=== PATIENT | male | born 1965 | race Caucasian/White ===

== ENCOUNTER 2019-11-20 19:26 | Emergency (ER) | payer OTHER ==
[2019-11-20] MEDS ORDERED: NALOXONE HCL 0.4 MG/ML VIAL IVPUSH ONE ×2 (19:44→21:28)
[2019-11-20 19:47] VITALS: TEMP 97.9; BMI 17.8
[2019-11-20] MEDS ORDERED: NALOXONE HCL 0.4 MG/ML VIAL ONE (20:11)
--- NOTE | 2019-11-20 20:18 | PDOC ---
History of Present Illness - General Chief Complaint: Weakness Stated Complaint: Weakness Time Seen by Provider: 11/20/19 19:37 - History of Present Illness Initial Comments: 11/20/19 20:11 55 y/o M hx of polysubstance abuse. was being evaluated at [facility], and he was persistently lethargic and only arousable to sternal rub or painful stimuli. utox earlier today at a [facility] was positive for cocaine , morphine, methodone, fentanyl. patient is on methadone maintenance therapy at 140mg daily. pt unable to give further hx at this time, remains lethargic but arousable. was not given narcan prior to arrival. ROS: pt lethargic and only rousable to sternal rub, unable to answer at this time. PE: GENERAL: lethargic, awakens to sternal rub and painful stimuli. HEAD: No signs of trauma, normocephalic, atraumatic EYES: PERRLA, conjunctiva clear ENT: Auricles normal inspection, hearing grossly normal, nares patent, oropharynx clear without exudates. Moist mucosa NECK: Normal ROM, supple, no lymphadenopathy, JVD, or masses LUNGS: No distress, clear to auscultation bilaterally HEART: Regular rate and rhythm, normal S1 and S2, no murmurs, rubs or gallops, peripheral pulses normal and equal bilaterally. ABDOMEN: Soft, nontender, normoactive bowel sounds. No guarding, no rebound. No masses EXTREMITIES : Normal inspection, Normal range of motion, no edema. No clubbing or cyanosis NEUROLOGICAL: Cranial nerves II through XII grossly intact. slurred speech. no focal sensorimotor deficits SKIN: Warm, Dry, normal turgor, no rashes or lesions noted 11/23/19 20:19 11/23/19 20:21 Past History - Medical History Allergies/Adverse Reactions: Allergies Allergy/AdvReac Type Severity Reaction Status Date / Time No Known Allergies Allergy Verified 11/20/19 19:47 Home Medications: Ambulatory Orders NK [No Known Home Medication] 11/21/19 - Psycho-Social/Smoking History Smoking History: Current some day smoker Have you smoked in the past 12 months: Yes Number of Cigarettes Smoked Daily: 4 Information on smoking cessation initiated: No - Substance Abuse Hx (Audit-C & DAST Scrn) How often the patient has a drink containing alcohol: Monthly or less How often the patient has six or more drinks on one occasion: Less than monthly Score: In Men: 4 or > Positive; In Women: 3 or > Positive: 2 Screen Result (Pos requires Nsg. Audit-10AR): Negative In the last yr the pt used illegal drug/Rx for NonMed reason: Yes Score: Yes response is considered Positive: 1 Screen Result (Positive result requires Nsg. DAST-10): Positive *Physical Exam - Vital Signs Last Vital Signs Temp Pulse Resp BP Pulse Ox 97.9 F 72 14 107/71 97 11/20/19 19:30 11/20/19 19:30 11/20/19 19:30 11/20/19 19:30 11/20/19 19:30 ED Treatment Course - LABORATORY CBC & Chemistry Diagram: 11/21/19 01:49 11/21/19 01:49 Medical Decision Making - Medical Decision Making 11/20/19 20:28 55y/o M hx of polysubstance abuse. pt given 0.2mg of narcan IV. now sneezing with improved RR and less lethargic. vitals have remained within normal limits. [facility] contacted for bed availability, no response at this time, message left. Pt signed out to Dr. Conn 11/23/19 20:20 Discharge - Discharge Information Problems reviewed: Yes Clinical Impression/Diagnosis: Opiate or related narcotic overdose Qualifiers: Encounter type: initial encounter Injury intent: undetermined intent Qualified Code(s): T40.604A - Poisoning by unspecified narcotics, undetermined, initial encounter Condition: Fair Disposition: TRANSFER ACUTE CARE/OTHER HOSP - Follow up/Referral - Patient Discharge Instructions Additional Instructions: Patient evaluated by [facility] ED for opiate overdose. Narcan given, respirations stabilized. Labs show no acute problems, CT shows no acute problems, UTOX positive for methadone/cocaine/opiates. Medically cleared at this time for rehab at [facility]. If new or worsening symptoms, please return to ED. - Post Discharge Activity
--- NOTE | 2019-11-20 20:27 | PDOC ---
Documentation entered by Radha Vickers SCRIBE, acting as scribe for Lucy Griffith MD. Lucy Griffith MD: This documentation has been prepared by the Chauncey gracia Xhesika, SCRIBE, under my direction and personally reviewed by me in its entirety. I confirm that the documentation accurately reflects all work, treatment, procedures, and medical decision making performed by me. Attending Attestation - Resident Resident Name: DipakRhianna - ED Attending Attestation I have performed the following: I have examined & evaluated the patient, The case was reviewed & discussed with the resident, I agree w/resident's findings & plan, Exceptions are as noted - HPI HPI: 11/20/19 19:45 The patient is a 55Y/O M with a PMH of heroine/crack/cocaine abuse who presents to the ED [facility] from [facility] for lethargy and unresponsiveness. Per report, patient was at intake interview when he became more unresponsive. Pt had a positive drug screen for cocaine, heroine, fentanyl, and methadone. - Physicial Exam PE: 11/20/19 19:51 GENERAL: thin appearing, somnolent. Responsive to sternal rub. HEAD: No signs of acute trauma ENT: hearing grossly normal NECK: no midline cervical tenderness LUNGS: No wheezes, and no crackles HEART: Regular rate and rhythm, normal S1 and S2, no murmurs, rubs or gallops ABDOMEN: Soft, nontender, normoactive bowel sounds. No guarding, no rebound. No masses EXTREMITIES: no edema, n deformities NEUROLOGICAL: Moving all extremities SKIN: Warm, Dry, normal turgor 11/20/19 20:26 11/20/19 23:13 - Medical Decision Making 11/20/19 20:26 pt received a small amount of narcan and is sneezing 11/20/19 20:49 pt is lethargic, requires ct scan head,labs Patient was not going to detox but rather to REHAB and we did speak with the providers at [facility] and they have no available beds this evening, he can return iin am 11/21/19 02:17 Discharge - Discharge Information Problems reviewed: Yes Clinical Impression/Diagnosis: Opiate or related narcotic overdose Qualifiers: Encounter type: initial encounter Injury intent: undetermined intent Qualified Code(s): T40.604A - Poisoning by unspecified narcotics, undetermined, initial encounter Condition: Fair Disposition: TRANSFER ACUTE CARE/OTHER HOSP - Follow up/Referral - Patient Discharge Instructions Additional Instructions: Patient evaluated by [facility] ED for opiate overdose. Narcan given, respirations stabilized. Labs show no acute problems, CT shows no acute problems, UTOX positive for methadone/cocaine/opiates. Medically cleared at this time for rehab at [facility]. If new or worsening symptoms, please return to ED. - Post Discharge Activity
--- NOTE | 2019-11-20 22:41 | PDOC ---
*Physical Exam - Vital Signs Last Vital Signs Temp Pulse Resp BP Pulse Ox 97.9 F 72 14 107/71 97 11/20/19 19:30 11/20/19 19:30 11/20/19 19:30 11/20/19 19:30 11/20/19 19:30 ED Treatment Course - LABORATORY CBC & Chemistry Diagram: 11/21/19 01:49 11/21/19 01:49 - Medications Given in the ED: ED Medications Discontinued Medications Generic Name Dose Route Start Last Admin Trade Name Justin PRN Reason Stop Dose Admin Naloxone HCl 0.2 mg 11/20/19 19:44 11/20/19 20:14 Narcan - IVPUSH 11/20/19 19:45 0.2 mg ONCE ONE Administration Naloxone HCl 0.2 mg 11/20/19 21:28 11/20/19 21:45 Narcan - IVPUSH 11/20/19 21:29 0.2 mg ONCE ONE Administration Medical Decision Making - Medical Decision Making 11/20/19 22:41 Signed out to me by Dr. Quesada. Patient sent to ED for opiate overdose from [facility]. Can go to rehab but no rooms right now. Given 0.2mg narcan, respiratory rate good, satting well. Will get basic tox labs, CXR, repeat narcan if needed, and will observe in ED. 11/21/19 05:[address], CXR, ECG. CT obtained showing no acute intracranial pathology, old left zygomatic fracture, probably old nasal bridge fracture. Labs notable for: - CMP WNL - CBC WNL - UTOX +methadone/opiates/cocaine - ASA/APAP/ETOH negative Patient is alert, breathing normally, in NAD. VSS. Medically cleared to go to rehab at [facility] as planned. Discharge - Discharge Information Problems reviewed: Yes Clinical Impression/Diagnosis: Opiate or related narcotic overdose Qualifiers: Encounter type: initial encounter Injury intent: undetermined intent Qualified Code(s): T40.604A - Poisoning by unspecified narcotics, undetermined, initial encounter Condition: Fair Disposition: TRANSFER ACUTE CARE/OTHER HOSP - Admission No - Follow up/Referral - Patient Discharge Instructions Additional Instructions: Patient evaluated by [facility] ED for opiate overdose. Narcan given, respirations stabilized. Labs show no acute problems, CT shows no acute problems, UTOX positive for methadone/cocaine/opiates. Medically cleared at this time for rehab at [facility]. If new or worsening symptoms, please return to ED. - Post Discharge Activity
[2019-11-21 02:00] LABS: BASO % 0.9 % (0-2.0); EOS % 4.6 % (0-4.5); HEMATOCRIT 41.7 % (35.4-49); HEMOGLOBIN 13.9 GM/dL (11.7-16.9); LYMPH % 29.5 % (8-40); MCH 28.8 pg (25.7-33.7); MCHC 33.3 g/dl (32.0-35.9); MEAN CELL VOLUME 86.4 fl (80-96); MEAN PLT VOLUME 6.7 fl (7.5-11.1); MONO % 8.8 % (3.8-10.2); NEUT % 56.2 % (42.8-82.8); PLATELET COUNT 266 K/MM3 (134-434); RBC 4.83 M/mm3 (4.00-5.60); RDW 14.2 % (11.9-15.9); WHITE BLOOD COUNT 7.9 K/mm3 (4.0-10.0)
[2019-11-21 02:32] LABS: ALBUMIN 3.5 g/dl (3.4-5.0); ALK PHOS 135 U/L (45-117); ANION GAP 3 MMOL/L (8-16); BILIRUBIN,TOTAL 0.4 mg/dL (0.2-1); BLOOD UREA NITROGEN 17.3 mg/dL (7-18); CALCIUM 9.4 mg/dL (8.5-10.1); CHLORIDE 104 mmol/L (98-107); CO2 32 mmol/L (21-32); CREATININE 0.9 mg/dL (0.55-1.3); GLUCOSE,RANDOM 78 mg/dL (74-106); POTASSIUM 4.6 mmol/L (3.5-5.1); SGOT/AST 17 U/L (15-37); SGPT/ALT 16 U/L (13-61); SODIUM 139 mmol/L (136-145); TOT PROT 7.2 g/dl (6.4-8.2)
[2019-11-21 05:01] LABS: PHENCYCLIDINE,URINE NEGATIVE ng/ml (CUTOFF=25); URINE AMPHETAMINES NEGATIVE ng/ml (CUTOFF=500); URINE BARBITURATES NEGATIVE ng/ml (CUTOFF=200); URINE BENZODIAZEPINES NEGATIVE ng/ml (CUTOFF=200)
[2019-11-21 05:12] LABS: COCAINE, UR POSITIVE ng/ml (CUTOFF=300)
[2019-11-21 05:13] LABS: METHADONE, UR POSITIVE ng/ml (CUTOFF=300); OPIATES, URI POSITIVE ng/ml (CUTOFF=300)
[2019-11-21 06:39] VITALS: BP 120/72; PULSE 62
--- NOTE | 2019-11-21 09:18 | EKG ---
Test Reason : Blood Pressure : / mmHG Vent. Rate : 057 BPM Atrial Rate : 057 BPM P-R Int : 122 ms QRS Dur : 090 ms QT Int : 480 ms P-R-T Axes : 069 075 074 degrees QTc Int : 467 ms SINUS BRADYCARDIA OTHERWISE NORMAL ECG NO PREVIOUS ECGS AVAILABLE Confirmed by MD LETI, CARLOS A ([id number]) on 11/21/2019 9:17:29 AM Referred By: Confirmed By:CARLOS A LANDEROS MD
== END 2019-11-21 07:25 | disposition short-term general hospital (02) ==
LOC: EDBD → JER 19:26
PROC: 3E033NZ Introduction of Analgesics, Hypnotics, Sedatives into Peripheral Vein, Percutaneous Approach (ICD-10-PCS; principal; 2019-11-20)
PROC: 3E033GC Introduction of Other Therapeutic Substance into Peripheral Vein, Percutaneous Approach (ICD-10-PCS; 2019-11-20)
DX: T40.604A Poisoning by unspecified narcotics, undetermined, initial encounter (principal)
CPT/HCPCS: 36415; 70450-TC; 71045-TC-FY; 80053; 80307; 85025; 93005; 93010; 99285-25